=== PATIENT | female | born 1950 | race Caucasian/White ===

== ENCOUNTER 2016-07-15 07:17 | Day surgery (SDC) | payer OTHER ==
[2016-07-14 13:47] VITALS: Ht 152.4 cm; Wt 68.6 kg
[2016-07-15] VITALS (8 sets, daily range): BP systolic 133–166; BP diastolic 58–73; PULSE 69–77; RESP 16–22
[~2016-07-15] VITALS: Ht 152.4 cm; Wt 68.6 kg
[~2016-07-15 07:17] MED LIST: APR50 PO; ASPI81TA50 PO; ATOR40TA68 PO; CHOL100062 PO; CLON-379 PO; DOCU100T PO; HYDR-2086 PO; LEVE500S9 PO; MEGE40TA PO; NEPH PO; NIFE60TA7 PO; VALS80TA2 PO
[2016-07-15] MEDS ORDERED: ATOR20TA38 PO (08:39)
[2016-07-15] MEDS ORDERED: CHOL400T10 PO (08:40)
[2016-07-15] MEDS ORDERED: CLON-379 PO (08:41)
[2016-07-15] MEDS ORDERED: HYDR-3671 PO (08:43)
[2016-07-15] MEDS ORDERED: LEVE10006 PO (08:44)
[2016-07-15] MEDS ORDERED: CARV25TA79 PO (08:46)
[2016-07-15] MEDS ORDERED: CALC667C PO (08:47)
[2016-07-15] MEDS ORDERED: FOLI-49 PO (08:47)
[2016-07-15] MEDS ORDERED: ONDA4TAB8 PO (08:48)
[2016-07-15] MEDS ORDERED: AMLO-147 PO (08:48)
[2016-07-15] MEDS ORDERED: HYDR-3011 PO (08:49)
[2016-07-15] MEDS ORDERED: ZOLP5TAB6 PO (08:50)
[2016-07-15] MEDS ORDERED: HYDR-906 PO (08:50)
[2016-07-15] MEDS ORDERED: MIN25 PO (08:51)
--- NOTE | 2016-07-15 09:27 | RADRPT ---
PROCEDURE: XR Chest. CLINICAL INDICATION: preop TECHNIQUE: Single frontal view of the chest was obtained COMPARISON: 04/08/16 FINDINGS: The heart is enlarged. The thoracic aorta is calcified. There is a left-sided Perma-Cath in place. The lungs are clear. There is no pleural effusion or pneumothorax. RPTAT: AA IMPRESSION: Mild to moderate cardiomegaly. Calcified aorta consistent with atherosclerotic disease. .Ethan Gómez MD, MD Date Time Electronically viewed and signed by .Ethan Gómez MD, on 07/15/2016 09:27 .S/
[2016-07-15 09:35] LABS: ADD SCAN DIFF NO
[2016-07-15 09:42] LABS: BASOPHILS % 0.4 % (0.0-2.0); EOSINOPHILS # 0.1 10^3/ul (0.0-0.5); EOSINOPHILS % 1.9 % (0.0-7.0); HEMOGLOBIN 11.5 g/dl (12.0-16.0); LYMPHOCYTES # 1.7 10^3/ul (0.8-2.9); LYMPHOCYTES % 36.4 % (15.0-51.0); MEAN CORPUSCULAR HEMOGLOBIN 33.5 pg (29.0-33.0); MEAN CORPUSCULAR HGB CONC 33.8 g/dl (32.0-37.0); MEAN CORPUSCULAR VOLUME 99.1 fl (82.0-101.0); MONOCYTE # 0.7 10^3/ul (0.3-0.9); MONOCYTES % 14.2 % (0.0-11.0); NEUTROPHIL # 2.2 10^3/ul (1.6-7.5); NEUTROPHILS % 46.9 % (39.0-77.0); PLATELET COUNT 147 10^3/UL (140-415); RED BLOOD COUNT 3.43 10^6/ul (4.20-5.40); RED CELL DISTRIBUTION WIDTH 12.7 % (11.5-14.5); WHITE BLOOD COUNT 4.7 10^3/ul (4.8-10.8)
[2016-07-15 09:48] LABS: INR 1.05; PARTIAL THROMBOPLASTIN TIME 30.5 Sec (25.0-35.0); PROTIME 13.7 Sec (12.2-14.2); PT RATIO 1.1
[2016-07-15 09:50] LABS: ALBUMIN 4.3 g/dl (3.3-4.9)
[2016-07-15 09:53] LABS: ALBUMIN/GLOBULIN RATIO 1.22; BILIRUBIN,INDIRECT 0.1 mg/dl (0-1.1); BILIRUBIN,TOTAL 0.1 mg/dl (0.2-1.3); POTASSIUM 4.5 mmol/L (3.5-5.1); TOTAL PROTEIN 7.8 g/dl (6.1-8.1)
[2016-07-15 09:54] LABS: CREATININE 6.05 mg/dl (0.44-1.00)
[2016-07-15 09:55] LABS: CALCIUM 9.2 mg/dl (8.4-10.2)
[2016-07-15] MEDS ORDERED: LIDOCAINE 2% (SDV) 5 ML INJ ONE (09:55)
[2016-07-15] MEDS ORDERED: ROPIVACAINE 0.5 % 30 ML VIAL ONE (09:55)
[2016-07-15] MEDS ORDERED: PROPOFOL 20 ML ONE (09:55)
[2016-07-15] MEDS ORDERED: MIDAZOLAM 1 MG/ML 2 ML INJ ONE (09:55)
[2016-07-15] MEDS ORDERED: CEFAZOLIN 1 GM INJ ONE (10:20)
[2016-07-15] MEDS ORDERED: THROMBIN 5000 UNIT VIAL TOP ONE (10:44)
[2016-07-15] MEDS ORDERED: GELATIN SIZE 100 SPONGE TOP ONE (10:44)
[2016-07-15] MEDS ORDERED: LIDOCAINE 1% (MPF) 30 ML INJ INJ ONE (10:45)
[2016-07-15] MEDS ORDERED: HEPARIN 1000 UNITS/ML 10 ML INJ IRR ONE (10:54)
[2016-07-15] MEDS ORDERED: METOCLOPRAMIDE 10 MG INJ ONE (11:00)
[2016-07-15] MEDS ORDERED: ONDANSETRON 4 MG INJ ONE (11:00)
[2016-07-15] MEDS ORDERED: EPHEDrine SULFATE 50 MG/5 ML SYG ONE (11:04)
[2016-07-15] MEDS ORDERED: GELATIN SIZE 100 SPONGE ONE (11:19)
[2016-07-15] MEDS ORDERED: THROMBIN 5000 UNIT VIAL ONE (11:19)
[2016-07-15] MEDS ORDERED: HEPARIN 1000 UNITS/ML 10 ML INJ ONE (11:19)
--- NOTE | 2016-07-15 11:28 | OPR ---
Date/Time of Note Date/Time of Note DATE: 07/15/16 TIME: 11:27 Operative Report Procedure Date: Jul 15, 2016 Preoperative Diagnosis ESRD Postoperative Diagnosis same Operation Performed L basilic vein transposition Anesthesia: general Estimated Blood Loss: minimal Complications: None Pt Condition Post Procedure: stable Disposition: PACU OBEY CURRIE MD Jul 15, 2016 11:28
[2016-07-15] MEDS ORDERED: FENTAnyl 50 MCG/ML VIAL ONE (12:07)
[2016-07-15] MEDS: FENTAnyl 50 MCG/ML VIAL IV PRN ×2 (12:08→12:15)
--- NOTE | 2016-07-15 12:09 | OPR ---
DATE OF OPERATION: 07/15/2016 PREOPERATIVE DIAGNOSIS: End-stage renal disease. POSTOPERATIVE DIAGNOSIS: End-stage renal disease. PROCEDURE PERFORMED: Revision of left arm AV fistula as a second stage basilic vein transposition. SURGEON: Obey Weaver MD ANESTHESIA: LMA. ESTIMATED BLOOD LOSS: Minimal. COMPLICATIONS: There were no intraprocedural complications. INDICATIONS: This is a 65-year-old woman with end-stage renal disease who has been on dialysis via PermCath. She had a left first stage basilic vein AV fistula created several months ago. It is mat ured and needs to be superficialized, so I brought her in today to transpose the fistula to a more s uperficial plane. DESCRIPTION OF PROCEDURE: The patient was brought to the operating room and placed on the table in t he supine position. After the induction of LMA anesthesia, left arm was prepped and draped in usual sterile fashion. I had marked the basilic vein on the skin from the elbow to the axilla prior to p repping. We began by making 2 incisions in the upper arm between the elbow and the axilla with a skip island in the middle right over the basilic vein. I then carefully dissected out the basilic vein from its origin at the brachial artery anastomosis to the axilla. I skeletonized the vein by ligating all t he side branches with either 2-0 or 3-0 silk ties and dividing them. Once I had the entire vein com pletely skeletonized, I clamped the vein just past the arterial anastomosis and then transected the vein about 5 cm more distal above the anastomosis in an oblique fashion. I then used an aortic harvest worker field crop ss-clamp to tunnel the vein basically in a superficial plane right under the skin between the upper arm and the lower arm. I then re-anastomosed the 2 ends of the vein using 6-0 Prolene suture in a r unning standard vascular surgical fashion. I removed the clamps. There was a good thrill in the fi stula and there was good hemostasis. I closed the skin incisions in 2 layers using an inner layer of 3-0 Vicryl and an outer layer of guevara gical geeta. Sterile dressing was applied. The patient was extubated in the operating room and t ransferred to the recovery room in stable condition. She tolerated the procedure well without any c omplications. Dictated By: OBEY MCLEAN/NTS Conf#: [id number] DID#: [id number]
[2016-07-15] MEDS ORDERED: HYDROmorphONE (0.2 MG/ML) 10ML SYG IV PRN (12:30)
[2016-07-15] MEDS ORDERED: ONDANSETRON 4 MG INJ IV PRN (12:30)
[2016-07-15] MEDS ORDERED: DIPHENHYDRAMINE 50 MG INJ IV PRN (12:30)
[2016-07-15] MEDS ORDERED: OXYCODONE/ACETAMINOPHEN (5/325) TAB PO PRN (12:30)
--- NOTE | 2016-07-15 14:14 | RADRPT ---
Vent Rate: 69 bpm RR Interval: 0 msec NE Interval: 158 msec QRS Duration: 82 msec QT Interval: 440 msec QTC Interval: 471 msec P-R-T Orange: 47 - -35 - 11 degrees Normal sinus rhythm Left axis deviation Prolonged QT Abnormal ECG Electronically Signed By: Cristiano Lyon [id number]
== END 2016-07-15 14:02 | disposition home or self-care (01) ==
LOC: SDS 07:17
PROVIDERS: ATTEND Surgery Vascular Surgery
DX: I12.0 Hypertensive chronic kidney disease with stage 5 chronic kidney disease or end stage renal disease (principal); N18.6 End stage renal disease; I25.10 Atherosclerotic heart disease of native coronary artery without angina pectoris; E78.5 Hyperlipidemia, unspecified; I50.9 Heart failure, unspecified
CPT/HCPCS: 36832; 71010; 80053; 85025; 85610; 85730; 93005; J0690; J1644; J2250; J2405; J2765; J2795; J3010; Z7512; Z7610; C1725

== ENCOUNTER 2016-09-16 06:39 | Day surgery (SDC) | payer OTHER ==
[~2016-09-16] VITALS: Ht 147.3 cm; Wt 68.0 kg
[~2016-09-16 06:39] MED LIST changes: +AMLO-147 PO; -APR50 PO; +ATOR20TA38 PO; -ATOR40TA68 PO; +CALC667C PO; +CARV25TA79 PO; -CHOL100062 PO; +CHOL400T10 PO; -DOCU100T PO; +FOLI-49 PO; -HYDR-2086 PO; +HYDR-3011 PO; +HYDR-3671 PO; +HYDR-906 PO; +LEVE10006 PO; -LEVE500S9 PO; +MINO2.5T16 PO; +ONDA4TAB8 PO; +ZOLP5TAB7 PO
[2016-09-16 08:22] VITALS: BP 129/82; PULSE 90; RESP 20
[2016-09-16] MEDS ORDERED: TOPI50TA5 PO (08:35)
[2016-09-16 09:35] VITALS: BP 129/62; PULSE 84; RESP 20
--- NOTE | 2016-09-16 10:08 | OPR ---
DATE OF OPERATION: 09/16/2016 PREOPERATIVE DIAGNOSIS: Nonfunctioning left arm arteriovenous fistula. POSTOPERATIVE DIAGNOSIS: Nonfunctioning left arm arteriovenous fistula. PROCEDURE PERFORMED: Left arm arteriovenous fistulogram with percutaneous venoplasty of the distal b asilic vein AV fistula. SURGEON: Obey Weaver MD ANESTHESIA: Local anesthesia. ESTIMATED BLOOD LOSS: Minimal. COMPLICATIONS: No intraprocedural complications. INDICATIONS: This is a 66-year-old woman. She has diabetes, hypertension, end-stage renal disease. She has a left arm AV fistula that is a brachiobasilic fistula that was created several months ago and it just not maturing. It is a very large arm and the vein has a good thrill at the anastomosis , but it is hard to feel the vein higher up in the arm, so I brought her in today for a fistulogram and possible intervention. DESCRIPTION OF PROCEDURE: The patient was brought to the oil field laborer and placed on the table in the patterson pine position. The left arm was prepped and draped in the usual sterile fashion. I began by using ultrasound to interrogate the vein. The basilic vein was an excellent size, it was very superficial , but right at the distal segment just above the elbow and at the elbow there is evidence of severe stricture on even B mode ultrasound, so when she was prepped and draped I anesthetized over the fist daniel in the mid upper arm using about 10 mL of 1% Xylocaine. I used a micropuncture needle to enter the vein. Under ultrasound guidance, pointing towards the elbow, I then advanced an 0.018 wire thr ough the needle, into the vein and the micropuncture sheath was advanced over the wire into the vein . I did a fistulogram, with compression of the outflow, that showed, as I suspected, there was sever e stenosis in the distal portion of the basilic vein just above the arterial anastomosis and another stenosis a little bit higher. Although the arterial anastomosis was patent, there was diffuse sten osis through the distal portion of the fistula and right at the anastomosis. I advanced the Glidew brain through the micropuncture sheath and I exchanged the micropuncture sheath for a 6-Greek sheath over the wire. I then advanced a 5 mm x 10-cm balloon over the wire and into the brachial artery, a nd then angioplastied the distal segment of the cephalic vein and the arterial anastomosis with the balloon to 10 atmospheres for 2 minutes. Completion angiogram showed no significant residual stenos is. There was some mild diffuse narrowing, but the vein was just smallest enough through that segme nt, but not stenotic. The rest of the fistula I did a completion fistulogram that showed the basili c vein is very good caliber and patent all the way up into the central veins. The central veins wer e widely patent. There was no stenosis. She has a left IJ PermCath, which was in good position. I then removed the catheter sheaths and wires, used a 4-0 Monocryl pursestring suture to close the pu ncture site, with good hemostasis. She tolerated the procedure well, without any complications. I a m going to see her back in a week or two and the vein should begin to mature and the fistula ought t o become functional. If there are further problems with maturation, we may have to go back and revi se the arterial anastomosis and use the vein a little bit more proximal to go to the arterial anasto mosis. Dictated By: OBEY MCLEAN/VICTOR MANUEL Conf#: [id number] DID#: [id number]
== END 2016-09-16 11:18 | disposition home or self-care (01) ==
LOC: CCL 06:39 → SDS 06:47 → CCL 11:18
PROVIDERS: ATTEND Surgery Vascular Surgery
DX: T82.898A Other specified complication of vascular prosthetic devices, implants and grafts, initial encounter (principal); Y84.1 Kidney dialysis as the cause of abnormal reaction of the patient, or of later complication, without mention of misadventure at the time of the procedure; Y92.89 Other specified places as the place of occurrence of the external cause; I12.0 Hypertensive chronic kidney disease with stage 5 chronic kidney disease or end stage renal disease; N18.6 End stage renal disease; E11.9 Type 2 diabetes mellitus without complications
CPT/HCPCS: 36901; 37248; C1725; C1769; C1887; C1894; Z7610